=== PATIENT | male | born 1970 | race Caucasian/White ===

== ENCOUNTER 2017-02-18 06:55 | Emergency (ER) | payer OTHER ==
[~2017-02-18] VITALS: Ht 182.9 cm; Wt 117.9 kg
[2017-02-18 06:57] VITALS: TEMP 36.8; Ht 182.9 cm; Wt 117.9 kg
[2017-02-18] MEDS ORDERED: SODIUM CHLORIDE 0.9% 1000ML 1,000 ML IV SCH (07:15)
--- NOTE | 2017-02-18 07:17 | EMERGENCY ROOM VISIT NOTE ---
History Report prepared by Isidoro: Zain Plunkett Under the Supervision of: Dr. Adalberto Cullen D.O. First contact with patient: 07:01 Chief Complaint: ABDOMINAL PAIN Stated Complaint: ABD PAIN Nursing Triage Summary: pt c/o lower abd pain in middle started . denies any n/v/c/d. intermittent pain and could not sleep last night History of Present Illness The patient is a 46 year old male who presents to the Emergency Room with complaints of intermittent lower mid abdominal pain beginning two days prior to arrival. He currently rates his discomfort as a 1/10 in severity, but he states his pain is a 5-6/10 during the episodes. The patient notes it has slowly been worsening over the past three days. He states he had a poor night's sleep due to his discomfort last night. The patient notes he is in town for the local [employer] [place], and he is from [place]. The patient notes he did not notice is abdominal discomfort on the drive to town, but it developed while he was sitting in the car. He does state he has noticed some increased gas with today' s symptoms. The patient notes he will experience his discomfort for a minute or two. He denies the pain radiating anywhere. The patient denies noticing eating affecting his discomfort. He denies a history of ulcers, regular ibuprofen use, and a history of hernia surgeries. The patient states his episodes make him feel like he needs to have a bowel movement at times. He denies nausea, vomiting , diarrhea, black or bloody stool, and constipation. The patient notes he had a similar episode two months ago, and it went away on its own. He denies being seen by a provider for his previous episode. The patient notes he was recently diagnosed with diabetes but is not on medication. He states he has hypertension , as well. The patient notes he drinks alcohol occasionally, and he denies smoking and recreational drug use. 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 During -04/08 Timing: intermittent Associated Symptoms: + abdominal pain, No diarrhea, No hematochezia, No melena, No nausea, No vomiting Note: Associated symptoms: increased gas. Review of Systems See above for pertinent positives & negatives. A total of 10 systems reviewed and were otherwise negative. Past Medical & Surgical Medical Problems: (1) Diabetes (2) Hypertension Family History Patient reports no known family medical history. Social History Smoking Status: Never Smoker Alcohol Use: occasionally Drug Use: none Marital Status: Occupation Status: employed Current/Historical Medications Scheduled Hydrochlorothiazide (Hctz), 25 MG PO QAM Lisinopril (Zestril), 10 MG PO QAM Scheduled PRN Simethicone (Simethicone Extra Strengt 125 mg), 1 TAB PO BID PRN for Gas or Constipation Allergies Coded Allergies: No Known Allergies (Unverified , 02/18/17) Physical Exam Vital Signs Date Time Temp Pulse Resp B/P Pulse Ox O2 Delivery O2 Flow Rate FiO2 02/18/17 06:57 36.8 87 18 149/90 94 Room Air Physical Exam GENERAL: Patient is well appearing and in no acute distress. HEENT: No acute trauma, normocephalic atraumatic, mucous membranes moist, no nasal congestion, no scleral icterus. NECK: No stridor, no adenopathy, no meningismus, trachea is midline. LUNGS: No dyspnea. Clear to auscultation and equal bilaterally. No wheeze, no rhonchi. HEART: Regular rate and rhythm. No murmurs, rubs, gallops appreciated. ABDOMEN: Soft, nontender, bowel sounds positive, no masses appreciated, no peritonitis. : Normal genitalia. No hernias. BACK: No midline tenderness, no CVA tenderness EXTREMITIES: Normal motion all extremities, no cyanosis, no edema. NEUROLOGIC: Alert and oriented, no acute motor or sensory deficits, no focal weakness, cranial nerves grossly intact. SKIN: No rash, no jaundice, no diaphoresis. Medical Decision & Procedures ER Provider Diagnostic Interpretation: Radiology results as stated below per my review and radiologist interpretation: Non-specific bowel gas pattern with moderate stool burden was noted. KUB CLINICAL HISTORY: Persistent abdominal pain COMPARISON STUDY: No previous studies for comparison. FINDINGS: There is no pathologic bowel dilatation. There are no calcification suspicious for urinary tract calculi. There is no conventional radiographic evidence organomegaly. Faint prostatic calcifications are visualized. IMPRESSION: Unremarkable supine abdomen. Electronically signed by: Ravi Perez M.D. 02/18/2017 7:54 AM Laboratory Results 02/18/17 07:25 Red Blood Count 5.09, Mean Corpuscular Volume 89.2, Mean Corpuscular Hemoglobin 31.8, Mean Corpuscular Hemoglobin Concent 35.7, Mean Platelet Volume 9.3, Neutrophils (%) (Auto) 81.0, Lymphocytes (%) (Auto) 11.4, Monocytes (%) (Auto) 6.6, Eosinophils (%) (Auto) 0.5, Basophils (%) (Auto) 0.1, Neutrophils # (Auto) 12.14, Lymphocytes # (Auto) 1.71, Monocytes # (Auto) 0.99, Eosinophils # (Auto) 0.07, Basophils # (Auto) 0.02 02/18/17 07:25 Test 02/18/17 07:18 02/18/17 07:25 Urine Color YELLOW Urine Appearance CLEAR (CLEAR) Urine pH 6.0 (4.5-7.5) Urine Specific [place] 1.027 (1.000-1.030) Urine Protein NEG (NEG) Urine Glucose (UA) NEG (NEG) Urine Ketones NEG (NEG) Urine Occult Blood NEG (NEG) Urine Nitrite NEG (NEG) Urine Bilirubin NEG (NEG) Urine Urobilinogen NEG (NEG) Urine Leukocyte Esterase NEG (NEG) White Blood Count 14.99 K/uL (4.8-10.8) Red Blood Count 5.09 M/uL (4.7-6.1) Hemoglobin 16.2 g/dL (14.0-18.0) Hematocrit 45.4 % (42-52) Mean Corpuscular Volume 89.2 fL (80-100) Mean Corpuscular Hemoglobin 31.8 pg (25-34) Mean Corpuscular Hemoglobin Concent 35.7 g/dl (32-36) Platelet Count 244 K/uL (130-400) Mean Platelet Volume 9.3 fL (7.4-10.4) Neutrophils (%) (Auto) 81.0 % Lymphocytes (%) (Auto) 11.4 % Monocytes (%) (Auto) 6.6 % Eosinophils (%) (Auto) 0.5 % Basophils (%) (Auto) 0.1 % Neutrophils # (Auto) 12.14 K/uL (1.4-6.5) Lymphocytes # (Auto) 1.71 K/uL (1.2-3.4) Monocytes # (Auto) 0.99 K/uL (0.11-0.59) Eosinophils # (Auto) 0.07 K/uL (0-0.5) Basophils # (Auto) 0.02 K/uL (0-0.2) RDW Standard Deviation 40.7 fL (36.4-46.3) RDW Coefficient of Variation 12.5 % (11.5-14.5) Immature Granulocyte % (Auto) 0.4 % Immature Granulocyte # (Auto) 0.06 K/uL (0.00-0.02) Anion Gap 7.0 mmol/L (3-11) Est Creatinine Clear Calc Drug Dose 112.4 ml/min Estimated GFR () 93.5 Estimated GFR (Non- 80.6 BUN/Creatinine Ratio 11.9 (10-20) Calcium Level 8.9 mg/dl (8.5-10.1) Phosphorus Level 3.0 mg/dl (2.5-4.9) Magnesium Level 2.1 mg/dl (1.8-2.4) Total Bilirubin 0.9 mg/dl (0.2-1) Direct Bilirubin 0.2 mg/dl (0-0.2) Aspartate Amino Transf (AST/SGOT) 18 U/L (15-37) Alanine Aminotransferase (ALT/SGPT) 54 U/L (12-78) Alkaline Phosphatase 110 U/L (45-117) Total Protein 7.4 gm/dl (6.4-8.2) Albumin 3.8 gm/dl (3.4-5.0) Lipase 136 U/L (73-393) Laboratory results as reviewed by me. Medications Administered Medications (Trade) Dose Ordered Sig/Charmaine Route Start Time Stop Time Status Last Admin Dose Admin Sodium Chloride (Nss 1000ml) 1,000 ml @ 999 mls/hr Q1H1M IV 02/18/17 07:15 03/20/17 07:14 02/18/17 07:15 999 MLS/HR Simethicone (Mylicon Chew Tab) 80 mg ONE ONCE PO 02/18/17 07:30 02/18/17 07:31 DC 02/18/17 07:31 80 MG ED Course 0706: The patient was evaluated in room A2. A complete history and physical exam was performed. 0715: Ordered Sodium Chloride 1,000 ml @ 999 mls/hr IV. 0730: Ordered Simethicone 80 mg PO. 0807: Reevaluated the patient. Discussed results and discharge instructions: He verbalized understanding and agreement. The patient is ready for discharge. Medical Decision Differential diagnosis: Etiologies such as appendicitis, diverticulitis, PUD, biliary pathology, UTI, pancreatitis, obstruction, mesenteric ischemia, aortic pathology, infections, inflammatory bowel disease, renal colic, as well as others were entertained. Patient is a 46-year-old male with significant past medical history of hypertension on lisinopril and hydrochlorothiazide and recently diagnosed diabetes mellitus not on oral therapy who presents with a four-day history of intermittent waxing and waning abdominal pain. The abdominal pain occurs sporadically is not associated with nausea vomiting or diarrhea or change in bowel habits including melena. At its worst the pain is 5 out of 10 currently he is pain-free. He had this occur approximately 2 months ago as well he did not seek medical treatment at that time. He is not taking anything for the pain. He admits to occasional [id number] ibuprofen use to 3 times per week. He is from [facility] and is in the area for the [employer]. During my examination he had mild tenderness in the left lower quadrant no guarding no rebound, this is not a surgical abdomen. He will check a CMP, electrolytes, white count and obtain a KUB. KUB revealed a moderate stool burden, otherwise nonspecific bowel gas, laboratory examination was largely unremarkable with the exception of hyperglycemia which the patient is a known diabetic. Advised the patient that this may be gas pain for which she is having however I cannot exclude things such as diverticulitis. I advised him the risks benefits of antibiotic treatment and we have opted to not undergo antibiotic treatment at this time. Advised him to return for any change in his bowel habits including rectal bleeding, nausea vomiting or any other concerns. Be discharged home in improved stable condition with a prescription for simethicone and follow up with his primary care provider for further evaluation, if this continues to recur or he may need to under go colonoscopy examination. Impression Primary Impression: Abdominal pain Additional Impressions: HTN (hypertension) Diabetes mellitus Hyperglycemia due to type 2 diabetes mellitus Scribe Attestation The scribe's documentation has been prepared under my direction and personally reviewed by me in its entirety. I confirm that the note above accurately reflects all work, treatment, procedures, and medical decision making performed by me. Departure Information Dispostion Home / Self-Care Prescriptions Simethicone (Simethicone Extra Strengt 125 mg) 1 Cap Cap 1 TAB PO BID Y for Gas or Constipation, #30 TAB Prov: Adalberto Cullen D.O. 02/18/17 Referrals No Doctor, Assigned (PCP) Forms Call Back Authorization, HOME CARE DOCUMENTATION FORM, IMPORTANT VISIT INFORMATION Patient Instructions Abdominal Pain - [facility], [facility] Additional Instructions Follow-up with your primary care provider for further evaluation. This could represent diverticulitis, return to the emergency department for fevers chills nausea vomiting. Follow-up with her primary care provider for any change in bowel habits including rectal bleeding. Use the simethicone as needed for abdominal pain. Problem Qualifiers Primary Impression: Abdominal pain Abdominal location: left lower quadrant Qualified Codes: R10.32 - Left lower quadrant pain Additional Impressions: HTN (hypertension) Hypertension type: essential hypertension Qualified Codes: I10 - Essential ( primary) hypertension Diabetes mellitus Diabetes mellitus type: type 2 Diabetes mellitus complication status: without complication Diabetes mellitus intermediate manager insulin use: without detention use Qualified Codes: E11.9 - Type 2 diabetes mellitus without complications Hyperglycemia due to type 2 diabetes mellitus Diabetes mellitus detention insulin use: without detention use Qualified Codes: E11.65 - Type 2 diabetes mellitus with hyperglycemia
[2017-02-18] MEDS ORDERED: SIMETHICONE 80 MG CHEW PO ONE (07:30)
[2017-02-18] MEDS ORDERED: HYDR25TA4 PO (07:31)
[2017-02-18] MEDS ORDERED: LISI-461 PO (07:31)
[2017-02-18 07:41] LABS: BASO % 0.1 %; BASO ABS # 0.02 K/uL (0-0.2); COMPLETE YES; EOS % 0.5 %; HEMATOCRIT 45.4 % (42-52); IG% 0.4 %; LYMPH % 11.4 %; LYMPH ABS # 1.71 K/uL (1.2-3.4); MEAN CELL VOLUME 89.2 fL (80-100); MEAN CORPUSCULAR HEMOGLOBIN 31.8 pg (25-34); MEAN CORPUSCULAR HGB CONC 35.7 g/dl (32-36); MEAN PLATELET VOLUME 9.3 fL (7.4-10.4); MONO % 6.6 %; PLATELET COUNT 244 K/uL (130-400); RED BLOOD COUNT 5.09 M/uL (4.7-6.1); WHITE BLOOD COUNT 14.99 K/uL (4.8-10.8)
[2017-02-18 07:52] LABS: URINE APPEARANCE CLEAR (CLEAR); URINE BILIRUBIN NEG (NEG); URINE COLOR YELLOW; URINE NITRITE NEG (NEG); URINE SPECIFIC GRAVITY 1.027 (1.000-1.030); UROBILINOGEN NEG (NEG)
[2017-02-18 07:53] LABS: MANUAL MICROSCOPIC REQUIRED? NO; REVIEW REQ? NO; ZZUR CULT IF INDIC CLEAN CATCH NO
--- NOTE | 2017-02-18 07:55 | DIAGNOSTIC IMAGING REPORT ---
KUB CLINICAL HISTORY: Persistent abdominal pain COMPARISON STUDY: No previous studies for comparison. FINDINGS: There is no pathologic bowel dilatation. There are no calcification suspicious for urinary tract calculi. There is no conventional radiographic evidence organomegaly. Faint prostatic calcifications are visualized. IMPRESSION: Unremarkable supine abdomen. Electronically signed by: Ravi Perez M.D. 02/18/2017 7:54 AM Dictated Date/Time: 02/18/2017 7:53 AM
[2017-02-18 08:02] LABS: BUN/CREATININE RATIO 11.9 (10-20); CALCIUM 8.9 mg/dl (8.5-10.1); CREATININE 1.1 mg/dl (0.60-1.40); MAGNESIUM 2.1 mg/dl (1.8-2.4); POTASSIUM 3.9 mmol/L (3.5-5.1)
[2017-02-18] MEDS ORDERED: SIME1CAP37 PO (08:14)
[2017-02-18 08:20] VITALS: BP 137/83; PULSE 73; O2SAT 96
== END 2017-02-18 08:22 | disposition home or self-care (01) ==
LOC: C.EDB 06:56 → C.EDA 08:22
DX: R10.32 Left lower quadrant pain (principal); I10 Essential (primary) hypertension; E11.65 Type 2 diabetes mellitus with hyperglycemia; Z79.899 Other long term (current) drug therapy